=== PATIENT | female | born 1975 | race Caucasian/White ===

== ENCOUNTER 2020-09-30 14:39 | Emergency (ER) | payer OTHER ==
[~2020-09-30 14:39] MED LIST: GLUCOPHAGE1000 MG PO; HYDROCHLOROTH12.5 M1 PO; IBUPROFEN800 MG PO; JANUVIA25 MG PO; NORFLEX 100 MG100 MG PO; OMNICEF 300 MG300 MG PO; PREDNISONE50 MG PO; PROTONIX40 MG PO; TESSALON PERLE100 MG PO; VENTOLIN HFA 66.7 GM INH
[2020-09-30] MEDS ORDERED: VIBRAMYCIN100 MG PO (17:57)
[2020-09-30] MEDS ORDERED: PREDNISONE 20 M20 MG PO (17:57)
== END 2020-09-30 18:02 | disposition home or self-care (01) ==
LOC: ER1 14:39
DX: J45.901 Unspecified asthma with (acute) exacerbation (principal); J32.9 Chronic sinusitis, unspecified; E11.9 Type 2 diabetes mellitus without complications; I10 Essential (primary) hypertension; Z90.710 Acquired absence of both cervix and uterus; Z90.49 Acquired absence of other specified parts of digestive tract; Z20.822 Contact with and (suspected) exposure to COVID-19
CPT/HCPCS: 0240U; 71046; 87081; 87880; 99283

== ENCOUNTER 2021-08-31 21:27 | Emergency (ER) | payer OTHER ==
[~2021-08-31 21:27] MED LIST changes: +PREDNISONE 20 M20 MG PO; +VIBRAMYCIN100 MG PO
[2021-08-31 22:25] LABS: RED BLOOD COUNT 4.71 M/UL (4.00-5.10); WHITE BLOOD COUNT 8.5 K/UL (4.5-11.0)
[2021-08-31 22:53] LABS: BUN/CREATININE RATIO 13 (0-10)
[2021-09-01] MEDS ORDERED: PROTONIX40 MG PO (00:17)
== END 2021-09-01 00:30 | disposition home or self-care (01) ==
LOC: ER1 21:27
PROVIDERS: Nurse Practitioner
DX: K21.9 Gastro-esophageal reflux disease without esophagitis (principal); E11.9 Type 2 diabetes mellitus without complications; E78.5 Hyperlipidemia, unspecified
CPT/HCPCS: 71045; 80053; 80076; 81001; 82150; 82550; 82553; 83690; 84484; 85025; 99284; Q9967

== ENCOUNTER → 2021-10-22 | Outpatient (CLI) | payer OTHER | LOC: KOH-I 09:52 | DX: J32.3 Chronic sphenoidal sinusitis (principal); J33.9 Nasal polyp, unspecified | CPT/HCPCS: 70486 ==